=== PATIENT | male | born 1970 | race Caucasian/White ===

== ENCOUNTER → 2023-05-07 14:46 | Outpatient (BNVA) | payer BC, MEDICAID, SELFPAY | PROVIDERS: Family Provider Nurse Practitioner Family; PCP Nurse Practitioner Family; Referring Provider Psychiatry & Neurology Neurology; Visit Provider Physician Assistant | DX: M54.40 Lumbago with sciatica, unspecified side (principal); M54.16 Radiculopathy, lumbar region; R20.2 Paresthesia of skin; M51.36 Other intervertebral disc degeneration, lumbar region | CPT/HCPCS: 36415; 72110; 85651; 86141 ==

== ENCOUNTER 2023-05-26 07:47 | Outpatient (CLI) | payer BC, MEDICAID, SELFPAY ==
--- NOTE | 2023-05-26 08:00 | MR_ITS ---
WS: [id number] MRI CERVICAL SPINE NONCONTRAST TECHNIQUE: Sagittal T1, T2 and STIR imaging. Axial T2, gradient, and fiesta imaging. CLINICAL INFORMATION: S39.92XA - Unspecified injury of lower back, initial enco... COMPARISON: None. FINDINGS: Straightening of the normal cervical lordosis. Disc bulging worse at C5-C6 and C6-C7 with shallow nasir tral disc protrusions worse at C5-C6 with moderate central canal stenosis and indentation of the cerv ical cord. Some images degraded by motion. C2-C3: Moderate to advanced RIGHT facet arthropathy at this level. Moderate RIGHT and mild LEFT bony foraminal narrowing. C3-C4: Moderate to advanced RIGHT facet arthropathy. Moderate to severe RIGHT and mild LEFT bony fora luly narrowing. C4-C5: Disc osteophyte complex with endplate ridging. Mild central canal stenosis. Moderate to severe LEFT and mild RIGHT bony foraminal narrowing. Moderate to advanced LEFT facet arthropathy. C5-C6: Disc osteophyte protrusion with indentation and slight flattening of the cervical cord. Modera te central canal stenosis. Moderate to severe LEFT and moderate RIGHT bony foraminal narrowing. Mild facet arthropathy. C6-C7: Disc osteophyte complex with shallow central protrusion. Mild central canal stenosis. Moderate bilateral bony foraminal narrowing. C7-T1: Osteophytic ridging with moderate bilateral bony foraminal narrowing. Visualized brain stem structures: Normal. Prevertebral soft tissues: Normal. IMPRESSION: 1. Straightening of the normal cervical lordosis. 2. Moderate to advanced facet arthropathy RIGHT C2-3, RIGHT C3-4, and LEFT C4-5 with moderate to sev ere bony foraminal narrowing at these levels. 3. Mild central canal stenosis C4-5. Moderate central canal stenosis C5-C6 and mild to moderate cent ral canal stenosis C6-7 with slight contact of the cervical cord. 4. Moderate to severe bony foraminal narrowing worse at RIGHT C2-3, RIGHT C3-4, LEFT C4-5, bilateral C5-6, and LEFT C6-7. 5. Moderate bilateral bony foraminal narrowing C6-C7 and C7-T1.
--- NOTE | 2023-05-26 08:45 | MR_ITS ---
WS: [email or web address] MRI THORACIC SPINE WITHOUT CONTRAST TECHNIQUE: Sagittal T1, T2 and STIR imaging. Axial T2 imaging. Noncontrast imaging obtained. CLINICAL INFORMATION: S39.92XA - Unspecified injury of lower back, initial enco... COMPARISON: None. FINDINGS: Mild thoracic curve. Mild thoracic kyphosis. Small disc protrusions in the mid thoracic spine most pr ominent at T5-6 with slight indentation on the thoracic cord. No significant central canal stenosis. Cord signal is normal. Tiny shallow protrusion at T9-T10. Mild LEFT T10-11 bony foraminal narrowing. Moderate facet arthropa thy lower thoracic spine. Mild disc space narrowing in the midthoracic spine. No acute compression fr actures. A few incidental perineural cysts. Tiny RIGHT thyroid cyst or nodule measuring 8 mm. Normal caliber thoracic aorta. Normal paravertebral soft tissues. IMPRESSION: 1. Mild thoracic curve. Mild thoracic kyphosis. No acute compression fractures. 2. Shallow central protrusion T5-T6 with slight contact and indentation on the thoracic cord. No sig nificant central canal stenosis. 3. Cord signal is normal. 4. Moderate facet arthropathy lower thoracic spine. 5. Mild LEFT T10-11 bony foraminal narrowing. 6. 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 7. Incidental perineural cysts.
== END 2023-05-26 07:48 | disposition home or self-care (01) ==
PROVIDERS: PCP Nurse Practitioner Family; Visit Provider Specialist
DX: S39.92XA Unspecified injury of lower back, initial encounter (principal); X58.XXXA Exposure to other specified factors, initial encounter; M51.24 Other intervertebral disc displacement, thoracic region; M48.02 Spinal stenosis, cervical region
CPT/HCPCS: 72141; 72146